=== PATIENT | female | born 1995 | race Two or more races ===

== ENCOUNTER 2018-12-19 22:57 | Emergency (ER) | payer BC, OTHER ==
[~2018-12-19] VITALS: Ht 175.3 cm; Wt 70.8 kg
[2018-12-19 23:00] VITALS: BP 124/75
[2018-12-19] MEDS ORDERED: TETanus/Pertussis (Acell)/Diphther VAC/PF (Tdap-Adult) 0.5ml syringe IM ONE (23:15)
[2018-12-19] MEDS ORDERED: LIDOcaine 1% w/epiNEPHrine 1:200,000 30ml vial IM ONE (23:15)
== END 2018-12-20 00:03 | disposition home or self-care (01) ==
LOC: ER 22:58
DX: S61.011A Laceration without foreign body of right thumb without damage to nail, initial encounter (principal); Z90.89 Acquired absence of other organs; W45.8XXA Other foreign body or object entering through skin, initial encounter; Y93.89 Activity, other specified; Y92.89 Other specified places as the place of occurrence of the external cause; Y99.8 Other external cause status
CPT/HCPCS: 12001; 99283; J3490

== ENCOUNTER 2018-12-29 10:55 | Emergency (ER) | payer BC ==
[~2018-12-29] VITALS: Ht 175.3 cm; Wt 72.7 kg
[2018-12-29 11:04] VITALS: BP 107/69
== END 2018-12-29 11:42 | disposition home or self-care (01) ==
LOC: ER 10:55
DX: S61.011D Laceration without foreign body of right thumb without damage to nail, subsequent encounter (principal); Z98.890 Other specified postprocedural states; W45.8XXD Other foreign body or object entering through skin, subsequent encounter
CPT/HCPCS: 99281